=== PATIENT | female | born 1985 | race American Indian/Alaskan Native ===

== ENCOUNTER 2017-09-02 18:27 | Emergency (ER) | payer SELFPAY ==
[2017-09-02] MEDS ORDERED: NACL 0.9% 1000 ML 1,000 ML IV ONE (22:24)
[2017-09-02 23:18] LABS: Basophils % (Auto) 1.1 % (0.0-1.8); Hematocrit 37.1 % (30.3-42.9); Hemoglobin 11.6 gm/dl (10.1-14.3); Mean Corpuscular HGB Conc 31 % (30-34); Mean Corpuscular Volume 72 fl (79-97); Platelet Count 234 K/mm3 (140-440); Red Blood Count 5.14 M/mm3 (3.65-5.03); Red Cell Distribution Width 14.4 % (13.2-15.2); White Blood Count 8.8 K/mm3 (4.5-11.0)
[2017-09-02 23:26] LABS: Bilirubin,Urine Negative (Negative); Blood,Urine Negative (Negative); Ketones,Urine Negative (Negative)
[2017-09-02 23:27] LABS: Leukocyte Esterase,Urine Negative (Negative); Nitrite,Urine Negative (Negative); Protein,Urine <15 mg/dL mg/dL (Negative); Urobilinogen,Urine < 2.0 mg/dL (<2.0)
[2017-09-02 23:32] LABS: Alanine Aminotransferase 28 units/L (7-56); Albumin 3.8 g/dL (3.9-5); Albumin/Globulin Ratio 1.4 %; Alkaline Phosphatase 74 units/L (35-129); Anion Gap 17 mmol/L; BUN/Creatinine Ratio 33; Bilirubin,Total < 0.20 mg/dL (0.1-1.2); Blood Urea Nitrogen 20 mg/dL (7-17); Calcium 8.7 mg/dL (8.4-10.2); Carbon Dioxide 25 mmol/L (22-30); Chloride 100.2 mmol/L (98-107); Glucose 102 mg/dL (65-100); Potassium 4.2 mmol/L (3.6-5.0); Sodium 138 mmol/L (137-145); Total Protein 6.5 g/dL (6.3-8.2)
[2017-09-02 23:39] LABS: Mean Corpuscular Hemoglobin 23 pg (28-32)
--- NOTE | 2017-09-03 00:30 | Ultrasound Report ---
FINAL REPORT EXAM: US PELVIC COMPLETE HISTORY: Patient with miscarriage in January D C appt. COMPARISON: None available. TECHNIQUE: Several real-time grayscale and color Doppler images were obtained. Transabdominal exam. FINDINGS: Uterus measures 7.9 x 5.4 x 5.2 centimeters. The endometrial stripe measures 5-6 millimeters within normal limits. No adnexal masses are demonstrated. The right ovary measures 2.4 x 2.5 x 2.0 centimeters. Left ovary is not visualized. IMPRESSION: No discrete uterine lesions or adnexal masses. Right ovary is grossly unremarkable. Left ovary is not visualized.
[2017-09-03] MEDS ORDERED: XYLOCAINE 1% MPF 5 mL INFILTRATI ONE (00:55)
[2017-09-03] MEDS ORDERED: ROCEPHIN IM ONE (00:55)
[2017-09-03] MEDS ORDERED: ROCEPHIN/NS 1 GM/50 ML 1 GM/50 ML BAG IV ONE (01:00)
--- NOTE | 2017-09-03 01:00 | Emergency Department Report ---
ED General Adult HPI - General Chief complaint: Medical Clearance Stated complaint: MEDICAL CLEARANCE/INFECTION Time Seen by Provider: 09/02/17 21:49 Source: patient Mode of arrival: Ambulatory Limitations: No Limitations - History of Present Illness Initial comments: Patient with reoccurring vaginal infections since January when she had a miscarriage and was supposed to have a D&C. She has been treated with multiple antibiotics for which she can not tell me what they are. She has periodic lower pelvic pain. MD Complaint: vaginal infection -: Gradual Location: pelvis Radiation: abdomen Severity scale (0 -10): 3 Quality: burning, sharp Consistency: intermittent Improves with: none Worsens with: none Associated Symptoms: denies other symptoms Treatments Prior to Arrival: none - Related Data Previous Rx's Medication Instructions Recorded Last Taken Type Azithromycin [Zithromax Z-LORIE] 250 mg PO DAILY #6 tablet 09/03/17 Unknown Rx Fluconazole [Diflucan TAB] 150 mg PO ONCE #2 tablet 09/03/17 Unknown Rx Allergies Allergy/AdvReac Type Severity Reaction Status Date / Time No Known Allergies Allergy Unverified 09/02/17 22:32 ED Review of Systems ROS: Stated complaint: MEDICAL CLEARANCE/INFECTION Other details as noted in HPI Constitutional: denies: chills, fever Eyes: denies: eye pain, eye discharge, vision change ENT: denies: ear pain, throat pain Respiratory: denies: cough, shortness of breath, wheezing Cardiovascular: denies: chest pain, palpitations Endocrine: no symptoms reported Gastrointestinal: denies: abdominal pain, nausea, diarrhea Genitourinary: discharge. denies: urgency, dysuria Musculoskeletal: denies: back pain, joint swelling, arthralgia Skin: denies: rash, lesions Neurological: denies: headache, weakness, paresthesias Psychiatric: denies: anxiety, depression Hematological/Lymphatic: denies: easy bleeding, easy bruising ED Past Medical Hx - Past Medical History Previous Medical History?: Yes - Surgical History Past Surgical History?: No - Social History Smoking Status: Current Every Day Smoker Substance Use Type: None - Medications Home Medications: Home Medications Medication Instructions Recorded Confirmed Last Taken Type Azithromycin [Zithromax Z-LORIE] 250 mg PO DAILY #6 tablet 09/03/17 Unknown Rx Fluconazole [Diflucan TAB] 150 mg PO ONCE #2 tablet 09/03/17 Unknown Rx ED Physical Exam - General Limitations: No Limitations General appearance: alert, in no apparent distress - Head Head exam: Present: atraumatic, normocephalic - Eye Eye exam: Present: normal appearance - ENT ENT exam: Present: mucous membranes moist - Neck Neck exam: Present: normal inspection - Respiratory Respiratory exam: Present: normal lung sounds bilaterally. Absent: respiratory distress - Cardiovascular Cardiovascular Exam: Present: regular rate, normal rhythm. Absent: systolic murmur, diastolic murmur, rubs, gallop - GI/Abdominal GI/Abdominal exam: Present: soft, tenderness (lower abdomen), normal bowel sounds - Extremities Exam Extremities exam: Present: normal inspection - Back Exam Back exam: Present: normal inspection - Neurological Exam Neurological exam: Present: alert, oriented X3 - Psychiatric Psychiatric exam: Present: normal affect, normal mood - Skin Skin exam: Present: warm, dry, intact, normal color. Absent: rash ED Course Vital Signs 09/02/17 09/02/17 09/02/17 21:00 21:05 21:16 Temperature 98.5 F Pulse Rate 86 103 H 85 Respiratory 19 31 H 20 Rate Blood Pressure 131/72 Blood Pressure 131/72 [Left] O2 Sat by Pulse 99 99 Oximetry 09/02/17 09/02/17 09/02/17 21:30 21:46 21:51 Temperature 98.5 F Pulse Rate 85 89 85 Respiratory 20 20 18 Rate Blood Pressure 125/62 125/62 125/75 Blood Pressure [Left] O2 Sat by Pulse 99 99 100 Oximetry 09/02/17 09/02/17 09/03/17 22:00 23:00 00:04 Temperature Pulse Rate 82 81 89 Respiratory 20 15 19 Rate Blood Pressure 130/68 130/68 123/75 Blood Pressure [Left] O2 Sat by Pulse 99 99 Oximetry ED Medical Decision Making - Lab Data Result diagrams: 09/02/17 23:01 09/02/17 23:01 - Medical Decision Making Patient with reoccurring vaginal discharge. US wnl and labs were normal. High probability of yeast infection and PID with exam. Will do diflucan and azithromycin outpatient and give rocephin IV here. Critical care attestation.: If time is entered above; I have spent that time in minutes in the direct care of this critically ill patient, excluding procedure time. ED Disposition Clinical Impression: PID (acute pelvic inflammatory disease), Candidiasis of genitalia in female Disposition: DC-01 TO HOME OR SELFCARE Is pt being admited?: No Does the pt Need Aspirin: No Condition: Good Instructions: Pelvic Inflammatory Disease (ED), Vulvovaginal Candidiasis (ED) Prescriptions: Azithromycin [Zithromax Z-LORIE] 250 mg PO DAILY #6 tablet Fluconazole [Diflucan TAB] 150 mg PO ONCE #2 tablet Referrals: PRIMARY CARE, [Primary Care Provider] - 3-5 Days Time of Disposition: 01:07
[2017-09-03 01:45] VITALS: BP 140/73
== END 2017-09-03 01:50 | disposition home or self-care (01) ==
LOC: ED 18:27
DX: N73.9 Female pelvic inflammatory disease, unspecified (principal); B37.9 Candidiasis, unspecified; F17.200 Nicotine dependence, unspecified, uncomplicated
CPT/HCPCS: 36415; 76856; 80053; 81001; 81025; 85025; 96361; 96365; 99284; J0696; J7030